=== PATIENT | female | born 1950 | race Caucasian/White ===

== ENCOUNTER 2019-01-22 08:58 | Outpatient (CLI) | payer BC, MEDICARE ==
[2019-01-22 09:28] LABS: Bilirubin Negative (Negative); Blood, Urine Negative (Negative); Clarity Clear (Clear); Glucose, Urine (Dipstick) Negative (Negative); Leukocyte Negative (Negative); Nitrite Negative (Negative); Protein, Urine (Dipstick) Negative (Neg-Trace); Urobilinogen 0.2 mg/dL (0.2-1.0)
[2019-01-22 09:29] LABS: #Basophils 0.1 thou/uL (0.0-0.2); #Eosinphils 0.3 thou/uL (0.0-0.7); #Lymphocytes 2.9 thou/uL (1.20-3.40); #Monocytes 0.5 thou/uL (0.11-0.59); #Neutrophils 4.2 thou/uL (1.40-6.50); %Basophils 0.9 % (0.0-1.0); %Eosinophils 3.3 % (0.0-10.0); %Lymphocytes 36.8 % (21.0-51.0); %Monocytes 6.1 % (0.0-10.0); %Neutrophils 52.9 % (42.0-75.0); Hemoglobin 13.8 g/dL (12.0-16.0); Mean Corpuscular Hemoglobin 31.4 pg (27.0-31.0); Mean Corpuscular Volume 98.2 fL (78.0-98.0); Platelet Count 308 thou/uL (130-400); RBC Distribution Width 11.7 % (11.5-14.5); Red Blood Cell (RBC) Count 4.39 mill/uL (4.20-5.40); White Blood Cell (WBC) Count 7.9 thou/uL (4.8-10.8)
[2019-01-22 09:35] LABS: RBC/HPF 0-3 HPF (0-3)
[2019-01-22 09:44] LABS: ALT (SGPT) 7 U/L (8-55); AST (SGOT) 10 U/L (5-34); Albumin 3.6 g/dL (3.4-4.8); Alkaline Phosphatase 84 U/L (40-150); Anion Gap 11 mmol/L (10-20); BUN (Urea Nitrogen) 9 mg/dL (9.8-20.1); Bilirubin, Total 0.4 mg/dL (0.2-1.2); Calc. Creatinine Clearance 0 mL/min (70-130); Calcium 8.6 mg/dL (7.8-10.44); Carbon Dioxide 26 mmol/L (23-31); Cardiac Risk 3.4 (Less than 4.5); Chloride 107 mmol/L (98-107); Cholesterol 202 mg/dl (< 200 Desired); Estimated GFR-MDRD 83; Glucose 93 mg/dL (80-115); HDL Cholesterol 60 mg/dL (>60 Neg Risk); LDL Cholesterol, Calculated 117 mg/dL; Protein, Total 6.6 g/dL (6.0-8.3); Sodium 140 mmol/L (136-145); Triglycerides 125 mg/dL (Less than 150)
== END 2019-01-22 08:59 | disposition home or self-care (01) ==
LOC: MADLABBHPM 08:58
PROVIDERS: ATTEND Family Medicine
DX: E66.01 Morbid (severe) obesity due to excess calories (principal); E78.5 Hyperlipidemia, unspecified; R82.90 Unspecified abnormal findings in urine; Z72.0 Tobacco use
CPT/HCPCS: 36415; 80053; 80061; 81001; 84443; 85025; 87086

== ENCOUNTER 2021-03-30 16:17 | Outpatient (CLI) | payer BC, MEDICARE | END 2021-03-30 16:18 | disposition home or self-care (01) | LOC: MADRAD 16:17 | PROVIDERS: ATTEND Family Medicine | DX: J44.9 Chronic obstructive pulmonary disease, unspecified (principal); I70.0 Atherosclerosis of aorta | CPT/HCPCS: 71046 ==

== ENCOUNTER 2021-09-11 13:13 | Emergency (ER) | payer BC, MEDICARE ==
[2021-09-11] MEDS ORDERED: predniSONE 20 MG TAB ONE (16:02)
[2021-09-11] MEDS ORDERED: predniSONE 10 MG TAB ONE (16:02)
[2021-09-11] MEDS ORDERED: Ipratropium Bromide 2.5 ml Neb ONE (16:03)
[2021-09-11] MEDS ORDERED: Albuterol Sulfate 2.5 mg/3 ml Neb ONE (16:03)
== END 2021-09-11 17:37 | disposition left against medical advice (07) ==
LOC: MADERS 13:13
DX: U07.1 COVID-19 (principal); J44.1 Chronic obstructive pulmonary disease with (acute) exacerbation; Z79.899 Other long term (current) drug therapy
CPT/HCPCS: 71045; 94760; J7512; J7611

== ENCOUNTER 2021-09-22 09:04 | Outpatient (CLI) | payer BC, MEDICARE ==
[2021-09-22] MEDS ORDERED: Iopamidol 370 76% 125 ML VIAL FS ONE (09:05)
[2021-09-22 09:58] LABS: Anion Gap 14 mmol/L (10-20); BUN (Urea Nitrogen) 10 mg/dL (9.8-20.1); Calc. Creatinine Clearance 0 mL/min (70-130); Calcium 8.6 mg/dL (7.8-10.44); Carbon Dioxide 27 mmol/L (23-31); Chloride 107 mmol/L (98-107); Glucose 86 mg/dL (80-115); Potassium 3.8 mmol/L (3.5-5.1); Sodium 144 mmol/L (136-145)
[2021-09-22 10:06] LABS: #Basophils 0.1 thou/uL (0.0-0.2); #Eosinphils 0.3 thou/uL (0.0-0.7); #Lymphocytes 2.6 thou/uL (1.20-3.40); #Monocytes 0.7 thou/uL (0.11-0.59); #Neutrophils 4.6 thou/uL (1.40-6.50); %Basophils 0.9 % (0.0-1.0); %Eosinophils 3.1 % (0.0-10.0); %Lymphocytes 31.7 % (21.0-51.0); %Monocytes 8.8 % (0.0-10.0); %Neutrophils 55.6 % (42.0-75.0); Hemoglobin 13.3 g/dL (12.0-16.0); Mean Corpuscular HGB CONC 31.4 g/dL (32.0-36.0); Mean Corpuscular Volume 98.8 fL (78.0-98.0); Mean Platelet Volume 7.4 fL (7.4-10.4); Platelet Count 341 thou/uL (130-400); RBC Distribution Width 12.1 % (11.5-14.5); Red Blood Cell (RBC) Count 4.28 mill/uL (4.20-5.40); White Blood Cell (WBC) Count 8.2 thou/uL (4.8-10.8)
== END 2021-09-22 09:05 | disposition home or self-care (01) ==
LOC: MADLAB 09:04
PROVIDERS: ATTEND Family Medicine
DX: J96.91 Respiratory failure, unspecified with hypoxia (principal); R91.8 Other nonspecific abnormal finding of lung field; I26.99 Other pulmonary embolism without acute cor pulmonale; J18.1 Lobar pneumonia, unspecified organism
CPT/HCPCS: 36415; 71275; 80048; 85025; Q9967

== ENCOUNTER 2021-10-28 14:43 | Outpatient (CLI) | payer BC, MEDICARE ==
[2021-10-28 15:04] LABS: #Basophils 0.1 thou/uL (0.0-0.2); #Eosinphils 0.2 thou/uL (0.0-0.7); #Lymphocytes 3.1 thou/uL (1.20-3.40); #Monocytes 0.6 thou/uL (0.11-0.59); #Neutrophils 4.6 thou/uL (1.40-6.50); %Basophils 1.2 % (0.0-1.0); %Eosinophils 2.9 % (0.0-10.0); %Lymphocytes 35.5 % (21.0-51.0); %Monocytes 6.9 % (0.0-10.0); %Neutrophils 53.5 % (42.0-75.0); Hemoglobin 14.2 g/dL (12.0-16.0); Mean Corpuscular HGB CONC 32.4 g/dL (32.0-36.0); Mean Corpuscular Hemoglobin 31.6 pg (27.0-31.0); Mean Corpuscular Volume 97.7 fL (78.0-98.0); Mean Platelet Volume 6.9 fL (7.4-10.4); Platelet Count 348 thou/uL (130-400); RBC Distribution Width 12.4 % (11.5-14.5); Red Blood Cell (RBC) Count 4.48 mill/uL (4.20-5.40); White Blood Cell (WBC) Count 8.6 thou/uL (4.8-10.8)
[2021-10-28 15:19] LABS: ALT (SGPT) 17 U/L (8-55); AST (SGOT) 18 U/L (5-34); Albumin 4.1 g/dL (3.4-4.8); Alkaline Phosphatase 74 U/L (40-110); Anion Gap 15 mmol/L (10-20); BUN (Urea Nitrogen) 11 mg/dL (9.8-20.1); Bilirubin, Total 0.5 mg/dL (0.2-1.2); Calc. Creatinine Clearance 0 mL/min (70-130); Calcium 9.8 mg/dL (7.8-10.44); Carbon Dioxide 27 mmol/L (23-31); Cardiac Risk 3.9 (Less than 4.5); Chloride 103 mmol/L (98-107); Cholesterol 199 mg/dl (< 200 Desired); Glucose 95 mg/dL (80-115); HDL Cholesterol 51 mg/dL (>60 Neg Risk); LDL Cholesterol, Calculated 125 mg/dL; Potassium 4.2 mmol/L (3.5-5.1); Protein, Total 7.1 g/dL (5.8-8.1); Sodium 141 mmol/L (136-145); Triglycerides 117 mg/dL (Less than 150)
== END 2021-10-28 14:44 | disposition home or self-care (01) ==
LOC: MADLAB 14:43
PROVIDERS: ATTEND Family Medicine
DX: U07.1 COVID-19 (principal); J44.9 Chronic obstructive pulmonary disease, unspecified
CPT/HCPCS: 36415; 71046; 80053; 80061; 85025

== ENCOUNTER 2023-06-12 21:56 | Inpatient (IN) | payer MEDICARE ==
[2023-06-13] MEDS ORDERED: Lidocaine-Prilocaine 2.5% Cream 5 GM TUBE TOP PRN (07:31)
[2023-06-13] MEDS ORDERED: Benzonatate 100 MG CAP PO PRN (07:31)
[2023-06-13] MEDS ORDERED: Lorazepam 2 MG/ML VIAL SLOW IVP PRN (07:31)
[2023-06-13] MEDS ORDERED: Non-Formulary Item 1 EACH (Docusate Sodium [Stool Softener] 50 MG Capsule) PO PRN (07:31)
[2023-06-13] MEDS ORDERED: Non-Formulary Item 1 EACH (Prochlorperazine Maleate [Compazine] 10 MG Tab) PO PRN (07:31)
[2023-06-13] MEDS ORDERED: Docusate Sodium 100 MG/10 ML UDCUP PO PRN (08:05)
[2023-06-13] MEDS ORDERED: Prochlorperazine Maleate 5 MG TAB PO PRN (08:06)
[2023-06-13] MEDS: Ipratropium/Albuterol 3 ML NEB NEB PRN ×2 (08:18→18:09)
[2023-06-13] MEDS ORDERED: Non-Formulary Item 1 EACH (Omeprazole Magnesium [Prilosec Otc] 20 MG Tab) PO SCH (09:00)
[2023-06-13] MEDS ORDERED: Cholecalciferol (Vitamin D3) 5,000 UNITS CAPSULE PO SCH (09:00)
[2023-06-13] MEDS ORDERED: Non-Formulary Item 1 EACH (Tiotropium [Spiriva Handihaler] 18 MCG Box) INH SCH (09:00)
[2023-06-13] MEDS: Gabapentin 300 MG CAP PO SCH (09:32)
[2023-06-13] MEDS: Cholecalciferol (Vitamin D3) 5,000 UNITS CAPSULE PO SCH (09:33)
[2023-06-13] MEDS: Apixaban 5 MG TAB PO SCH ×2 (09:33→21:48)
[2023-06-13] MEDS: Ferrous Sulfate 325 MG TAB PO SCH (09:33)
[2023-06-13] MEDS: Folic Acid 1 MG TAB PO SCH (09:33)
[2023-06-13] MEDS: traMADol HCl 50 MG TAB PO SCH (09:33)
[2023-06-13] MEDS ORDERED: Meropenem 1 GM in Sodium Chloride 0.9% 100 ML IVPB SCH (10:00)
[2023-06-13] MEDS: Ipratropium/Albuterol 3 ML NEB NEB SCH ×3 (11:28→21:48)
[2023-06-13] MEDS: Meropenem 1 GM in Sodium Chloride 0.9% 100 ML IVPB SCH ×3 (11:29→21:47)
[2023-06-13] MEDS ORDERED: Meropenem 1 GM VIAL IVPB SCH (12:00)
[2023-06-13] MEDS: Ondansetron ODT 4 MG TAB PO SCH ×2 (13:44→21:51)
[2023-06-13] MEDS ORDERED: ONDANSETRON 8 MG PO SCH (14:00)
[2023-06-13] MEDS: Benzonatate 100 MG CAP PO PRN (21:49)
[2023-06-13] MEDS: Cyanocobalamin (Vitamin B-12) 1,000 MCG TAB PO SCH (21:51)
[2023-06-14] MEDS: Ipratropium/Albuterol 3 ML NEB NEB SCH ×7 (00:12→20:51)
[2023-06-14] MEDS: Meropenem 1 GM in Sodium Chloride 0.9% 100 ML IVPB SCH ×7 (04:00→22:11)
[2023-06-14 05:16] LABS: Anisocytosis MODERATE=16-30 cells (100X) (0-5/hpf); Band 2 % (5-11); Hemoglobin 8.4 g/dL (12.0-16.0); Lymphocytes 8 % (21-51); MDiff Complete? YES; Mean Corpuscular HGB CONC 31.2 g/dL (32.0-36.0); Mean Corpuscular Volume 86.6 fl (78.0-98.0); Mean Platelet Volume 7.5 fL (7.4-10.4); Monocytes 3 % (0-10); Neutrophil 87 % (42-75); Platelet Adequacy Comment Appears Adequate; Platelet Count 311 10x3/uL (130-400); Red Blood Cell (RBC) Count 3.12 mill/uL (4.20-5.40); White Blood Cell (WBC) Count 11.1 10x3/uL (4.8-10.8)
[2023-06-14 05:22] LABS: ALT (SGPT) 12 U/L (8-55); AST (SGOT) 16 U/L (5-34); Albumin 2.6 g/dL (3.4-4.8); Alkaline Phosphatase 105 U/L (40-110); Anion Gap 15 mmol/L (10-20); BUN (Urea Nitrogen) 9 mg/dL (9.8-20.1); Bilirubin, Total 0.3 mg/dL (0.2-1.2); Calc. Creatinine Clearance 133 mL/min (70-130); Calcium 8.8 mg/dL (7.8-10.44); Carbon Dioxide 29 mmol/L (23-31); Chloride 97 mmol/L (98-107); Estimated GFR 94; Globulin 3.5 g/dL (2.4-3.5); Glucose 126 mg/dL (83-110); Potassium 4.2 mmol/L (3.5-5.1); Protein, Total 6.1 g/dL (5.8-8.1); Sodium 137 mmol/L (136-145)
[2023-06-14] MEDS: Ondansetron ODT 4 MG TAB PO SCH ×3 (05:25→21:01)
[2023-06-14] MEDS: traMADol HCl 50 MG TAB PO SCH (07:59)
[2023-06-14] MEDS: Gabapentin 300 MG CAP PO SCH (08:00)
[2023-06-14] MEDS: Ferrous Sulfate 325 MG TAB PO SCH (08:00)
[2023-06-14] MEDS: Apixaban 5 MG TAB PO SCH ×2 (08:00→20:52)
[2023-06-14] MEDS: Cholecalciferol (Vitamin D3) 5,000 UNITS CAPSULE PO SCH (08:01)
[2023-06-14] MEDS: Folic Acid 1 MG TAB PO SCH (08:01)
[2023-06-14] MEDS: Cyanocobalamin (Vitamin B-12) 1,000 MCG TAB PO SCH (20:51)
[2023-06-14] MEDS: Ipratropium/Albuterol 3 ML NEB NEB PRN (23:30)
[2023-06-15] MEDS: Ipratropium/Albuterol 3 ML NEB NEB SCH ×6 (02:03→20:14)
[2023-06-15] MEDS: Meropenem 1 GM in Sodium Chloride 0.9% 100 ML IVPB SCH ×6 (04:01→21:41)
[2023-06-15] MEDS: Ondansetron ODT 4 MG TAB PO SCH ×3 (05:29→21:41)
[2023-06-15] MEDS: Albuterol 200 PUFF (6.7GM INHALER) INH PRN ×2 (06:13→14:59)
[2023-06-15] MEDS: Ferrous Sulfate 325 MG TAB PO SCH (08:59)
[2023-06-15] MEDS: Apixaban 5 MG TAB PO SCH ×2 (09:00→20:15)
[2023-06-15] MEDS: traMADol HCl 50 MG TAB PO SCH (09:00)
[2023-06-15] MEDS: Gabapentin 300 MG CAP PO SCH (09:00)
[2023-06-15] MEDS: Cholecalciferol (Vitamin D3) 5,000 UNITS CAPSULE PO SCH (09:01)
[2023-06-15] MEDS: Folic Acid 1 MG TAB PO SCH (09:01)
[2023-06-15] MEDS: Benzonatate 100 MG CAP PO PRN (09:05)
[2023-06-15] MEDS: Cyanocobalamin (Vitamin B-12) 1,000 MCG TAB PO SCH (20:15)
[2023-06-16] MEDS: Ipratropium/Albuterol 3 ML NEB NEB SCH ×6 (00:41→20:32)
[2023-06-16] MEDS: Meropenem 1 GM in Sodium Chloride 0.9% 100 ML IVPB SCH ×6 (04:46→21:53)
[2023-06-16] MEDS: Ondansetron ODT 4 MG TAB PO SCH ×3 (05:43→21:53)
[2023-06-16] MEDS: Ferrous Sulfate 325 MG TAB PO SCH (08:41)
[2023-06-16] MEDS: Apixaban 5 MG TAB PO SCH ×2 (08:41→20:32)
[2023-06-16] MEDS: Cholecalciferol (Vitamin D3) 5,000 UNITS CAPSULE PO SCH (08:41)
[2023-06-16] MEDS: traMADol HCl 50 MG TAB PO SCH (08:41)
[2023-06-16] MEDS: Gabapentin 300 MG CAP PO SCH (08:43)
[2023-06-16] MEDS: Folic Acid 1 MG TAB PO SCH (08:43)
[2023-06-16] MEDS ORDERED: FLU VACC QS2023(65UP)/MF59C/PF 60 MCG/0.5 ML SYRINGE IM ONE (09:00)
[2023-06-16] MEDS ORDERED: TIOTROPIUM 18 MCG INH SCH (13:15)
[2023-06-16] MEDS: Cyanocobalamin (Vitamin B-12) 1,000 MCG TAB PO SCH (20:32)
[2023-06-17] MEDS: Ipratropium/Albuterol 3 ML NEB NEB SCH ×6 (01:38→20:14)
[2023-06-17] MEDS: Meropenem 1 GM in Sodium Chloride 0.9% 100 ML IVPB SCH ×6 (04:00→21:30)
[2023-06-17] MEDS: Ondansetron ODT 4 MG TAB PO SCH ×3 (05:34→21:30)
[2023-06-17] MEDS: Ipratropium/Albuterol 3 ML NEB NEB PRN (06:38)
[2023-06-17] MEDS: Gabapentin 300 MG CAP PO SCH (08:07)
[2023-06-17] MEDS: Cholecalciferol (Vitamin D3) 5,000 UNITS CAPSULE PO SCH (08:07)
[2023-06-17] MEDS: traMADol HCl 50 MG TAB PO SCH (08:07)
[2023-06-17] MEDS: Apixaban 5 MG TAB PO SCH ×2 (08:08→20:14)
[2023-06-17] MEDS: Folic Acid 1 MG TAB PO SCH (08:08)
[2023-06-17] MEDS: Ferrous Sulfate 325 MG TAB PO SCH (08:08)
[2023-06-17] MEDS: TIOTROPIUM 18 MCG INH SCH (11:43)
[2023-06-17] MEDS: Benzonatate 100 MG CAP PO PRN (16:16)
[2023-06-17] MEDS: Cyanocobalamin (Vitamin B-12) 1,000 MCG TAB PO SCH (20:13)
[2023-06-18] MEDS: Ipratropium/Albuterol 3 ML NEB NEB SCH ×4 (01:12→12:27)
[2023-06-18] MEDS: Meropenem 1 GM in Sodium Chloride 0.9% 100 ML IVPB SCH ×6 (03:53→20:58)
[2023-06-18] MEDS: Albuterol 200 PUFF (6.7GM INHALER) INH PRN (04:53)
[2023-06-18] MEDS: Ondansetron ODT 4 MG TAB PO SCH ×3 (05:26→22:26)
[2023-06-18 05:46] LABS: ALT (SGPT) 12 U/L (8-55); AST (SGOT) 15 U/L (5-34); Albumin 2.6 g/dL (3.4-4.8); Alkaline Phosphatase 108 U/L (40-110); Anion Gap 15 mmol/L (10-20); BUN (Urea Nitrogen) 10 mg/dL (9.8-20.1); Bilirubin, Total 0.2 mg/dL (0.2-1.2); Calc. Creatinine Clearance 126 mL/min (70-130); Calcium 8.6 mg/dL (7.8-10.44); Carbon Dioxide 30 mmol/L (23-31); Chloride 97 mmol/L (98-107); Estimated GFR 92; Globulin 3.5 g/dL (2.4-3.5); Glucose 131 mg/dL (83-110); Potassium 3.7 mmol/L (3.5-5.1); Protein, Total 6.1 g/dL (5.8-8.1); Sodium 138 mmol/L (136-145)
[2023-06-18 05:47] LABS: Anisocytosis SLIGHT = 6-15 cells (100X) (0-5/hpf); Band 2 % (5-11); Eosinophils 1 % (0-10); Hematocrit 26.7 % (36.0-47.0); Hemoglobin 8.3 g/dL (12.0-16.0); Lymphocytes 14 % (21-51); MDiff Complete? YES; Mean Corpuscular HGB CONC 31.1 g/dL (32.0-36.0); Mean Corpuscular Hemoglobin 27.4 pg (27.0-31.0); Mean Platelet Volume 6.7 fL (7.4-10.4); Monocytes 8 % (0-10); Neutrophil 75 % (42-75); Ovalocytes SLIGHT = 2-5 cells (100X) (0-1/hpf); Platelet Adequacy Comment Appears Adequate; Platelet Count 294 10x3/uL (130-400); Polychromasia SLIGHT = 2-3 cells (100X) (0-2/hpf); RBC Distribution Width 21.4 % (11.5-14.5); Red Blood Cell (RBC) Count 3.03 mill/uL (4.20-5.40); White Blood Cell (WBC) Count 10.6 10x3/uL (4.8-10.8)
[2023-06-18] MEDS: Folic Acid 1 MG TAB PO SCH (08:10)
[2023-06-18] MEDS: Apixaban 5 MG TAB PO SCH ×2 (08:10→20:52)
[2023-06-18] MEDS: traMADol HCl 50 MG TAB PO SCH (08:10)
[2023-06-18] MEDS: Cholecalciferol (Vitamin D3) 5,000 UNITS CAPSULE PO SCH (08:10)
[2023-06-18] MEDS: Ferrous Sulfate 325 MG TAB PO SCH (08:11)
[2023-06-18] MEDS: Gabapentin 300 MG CAP PO SCH (08:14)
[2023-06-18] MEDS ORDERED: Furosemide 40 MG/4 ML VIAL SLOW IVP SCH (11:00)
[2023-06-18] MEDS: TIOTROPIUM 18 MCG INH SCH ×2 (12:28→15:24)
[2023-06-18] MEDS: Benzonatate 100 MG CAP PO PRN (14:50)
[2023-06-18] MEDS: Ipratropium/Albuterol 3 ML NEB NEB PRN (20:51)
[2023-06-18] MEDS: Cyanocobalamin (Vitamin B-12) 1,000 MCG TAB PO SCH (20:52)
[2023-06-19] MEDS: Meropenem 1 GM in Sodium Chloride 0.9% 100 ML IVPB SCH ×6 (04:46→20:55)
[2023-06-19] MEDS: Ondansetron ODT 4 MG TAB PO SCH ×3 (04:55→21:31)
[2023-06-19] MEDS: Ipratropium/Albuterol 3 ML NEB NEB PRN ×3 (05:55→20:45)
[2023-06-19] MEDS: Gabapentin 300 MG CAP PO SCH (08:48)
[2023-06-19] MEDS: traMADol HCl 50 MG TAB PO SCH (08:49)
[2023-06-19] MEDS: Folic Acid 1 MG TAB PO SCH (08:49)
[2023-06-19] MEDS: Apixaban 5 MG TAB PO SCH ×2 (08:49→20:58)
[2023-06-19] MEDS: Cholecalciferol (Vitamin D3) 5,000 UNITS CAPSULE PO SCH (08:49)
[2023-06-19] MEDS: Ferrous Sulfate 325 MG TAB PO SCH (08:49)
[2023-06-19] MEDS: TIOTROPIUM 18 MCG INH SCH (12:45)
[2023-06-19] MEDS: Cyanocobalamin (Vitamin B-12) 1,000 MCG TAB PO SCH (20:58)
[2023-06-19] MEDS: Albuterol 200 PUFF (6.7GM INHALER) INH PRN (22:00)
[2023-06-20] MEDS: Meropenem 1 GM in Sodium Chloride 0.9% 100 ML IVPB SCH ×6 (04:05→21:20)
[2023-06-20] MEDS: Ondansetron ODT 4 MG TAB PO SCH ×3 (05:17→21:19)
[2023-06-20] MEDS ORDERED: Furosemide 40 MG/4 ML VIAL SLOW IVP SCH (08:00)
[2023-06-20] MEDS: Apixaban 5 MG TAB PO SCH ×2 (08:16→21:20)
[2023-06-20] MEDS: Ferrous Sulfate 325 MG TAB PO SCH (08:16)
[2023-06-20] MEDS: Gabapentin 300 MG CAP PO SCH (08:17)
[2023-06-20] MEDS: Folic Acid 1 MG TAB PO SCH (08:17)
[2023-06-20] MEDS: Cholecalciferol (Vitamin D3) 5,000 UNITS CAPSULE PO SCH (08:17)
[2023-06-20] MEDS: Benzonatate 100 MG CAP PO PRN (08:21)
[2023-06-20] MEDS: traMADol HCl 50 MG TAB PO SCH (08:21)
[2023-06-20] MEDS: TIOTROPIUM 18 MCG INH SCH (11:55)
[2023-06-20] MEDS: Cyanocobalamin (Vitamin B-12) 1,000 MCG TAB PO SCH (21:19)
[2023-06-21] MEDS: Meropenem 1 GM in Sodium Chloride 0.9% 100 ML IVPB SCH ×6 (04:19→20:27)
[2023-06-21] MEDS: Ondansetron ODT 4 MG TAB PO SCH ×3 (05:49→22:08)
[2023-06-21] MEDS: traMADol HCl 50 MG TAB PO SCH (08:16)
[2023-06-21] MEDS: Gabapentin 300 MG CAP PO SCH (08:18)
[2023-06-21] MEDS: Benzonatate 100 MG CAP PO PRN (08:18)
[2023-06-21] MEDS: Apixaban 5 MG TAB PO SCH ×2 (08:18→20:27)
[2023-06-21] MEDS: Ferrous Sulfate 325 MG TAB PO SCH (08:18)
[2023-06-21] MEDS: Folic Acid 1 MG TAB PO SCH (08:18)
[2023-06-21] MEDS: Cholecalciferol (Vitamin D3) 5,000 UNITS CAPSULE PO SCH (08:19)
[2023-06-21] MEDS: TIOTROPIUM 18 MCG INH SCH (12:31)
[2023-06-21] MEDS: Cyanocobalamin (Vitamin B-12) 1,000 MCG TAB PO SCH (20:28)
[2023-06-21] MEDS: Ipratropium/Albuterol 3 ML NEB NEB PRN (23:46)
[2023-06-22] MEDS: Meropenem 1 GM in Sodium Chloride 0.9% 100 ML IVPB SCH ×6 (04:28→21:32)
[2023-06-22] MEDS: Ondansetron ODT 4 MG TAB PO SCH ×3 (05:47→21:32)
[2023-06-22] MEDS: traMADol HCl 50 MG TAB PO SCH (08:07)
[2023-06-22] MEDS: Folic Acid 1 MG TAB PO SCH (08:07)
[2023-06-22] MEDS: Apixaban 5 MG TAB PO SCH ×2 (08:08→20:03)
[2023-06-22] MEDS: Gabapentin 300 MG CAP PO SCH (08:08)
[2023-06-22] MEDS: Benzonatate 100 MG CAP PO PRN ×2 (08:08→21:34)
[2023-06-22] MEDS: Cholecalciferol (Vitamin D3) 5,000 UNITS CAPSULE PO SCH (08:08)
[2023-06-22] MEDS: Ferrous Sulfate 325 MG TAB PO SCH (08:08)
[2023-06-22 10:38] VITALS: BMI 39.3
[2023-06-22] MEDS: TIOTROPIUM 18 MCG INH SCH (11:39)
[2023-06-22] MEDS: Cyanocobalamin (Vitamin B-12) 1,000 MCG TAB PO SCH (20:03)
[2023-06-22] MEDS: Ipratropium/Albuterol 3 ML NEB NEB PRN (21:35)
[2023-06-23] MEDS: Meropenem 1 GM in Sodium Chloride 0.9% 100 ML IVPB SCH ×6 (03:57→21:38)
[2023-06-23] MEDS: Ondansetron ODT 4 MG TAB PO SCH ×3 (05:27→21:38)
[2023-06-23] MEDS: Ipratropium/Albuterol 3 ML NEB NEB PRN (05:39)
[2023-06-23] MEDS: Cholecalciferol (Vitamin D3) 5,000 UNITS CAPSULE PO SCH (09:22)
[2023-06-23] MEDS: traMADol HCl 50 MG TAB PO SCH (09:22)
[2023-06-23] MEDS: Apixaban 5 MG TAB PO SCH ×2 (09:23→20:07)
[2023-06-23] MEDS: Folic Acid 1 MG TAB PO SCH (09:23)
[2023-06-23] MEDS: Gabapentin 300 MG CAP PO SCH (09:23)
[2023-06-23] MEDS: Ferrous Sulfate 325 MG TAB PO SCH (09:23)
[2023-06-23] MEDS: TIOTROPIUM 18 MCG INH SCH (12:12)
[2023-06-23] MEDS: Cyanocobalamin (Vitamin B-12) 1,000 MCG TAB PO SCH (20:07)
[2023-06-24] MEDS: Meropenem 1 GM in Sodium Chloride 0.9% 100 ML IVPB SCH ×6 (03:53→21:04)
[2023-06-24] MEDS: Ondansetron ODT 4 MG TAB PO SCH ×3 (05:38→21:03)
[2023-06-24] MEDS: traMADol HCl 50 MG TAB PO SCH (08:56)
[2023-06-24] MEDS: Folic Acid 1 MG TAB PO SCH (08:57)
[2023-06-24] MEDS: Cholecalciferol (Vitamin D3) 5,000 UNITS CAPSULE PO SCH (08:57)
[2023-06-24] MEDS: Apixaban 5 MG TAB PO SCH ×2 (08:57→21:03)
[2023-06-24] MEDS: Ferrous Sulfate 325 MG TAB PO SCH (08:57)
[2023-06-24] MEDS: Gabapentin 300 MG CAP PO SCH (08:57)
[2023-06-24] MEDS: Ipratropium/Albuterol 3 ML NEB NEB PRN (09:02)
[2023-06-24] MEDS: TIOTROPIUM 18 MCG INH SCH (12:30)
[2023-06-24] MEDS: Cyanocobalamin (Vitamin B-12) 1,000 MCG TAB PO SCH (21:03)
[2023-06-25 05:23] LABS: Hematocrit 28.6 % (36.0-47.0); Hemoglobin 8.6 g/dL (12.0-16.0); Platelet Count 335 10x3/uL (130-400)
[2023-06-25 07:20] VITALS: BP 107/70; TEMP 100
[2023-06-25] MEDS: Albuterol 200 PUFF (6.7GM INHALER) INH PRN (08:00)
[2023-06-25] MEDS: traMADol HCl 50 MG TAB PO SCH (08:04)
[2023-06-25] MEDS: Apixaban 5 MG TAB PO SCH (08:05)
[2023-06-25] MEDS: Folic Acid 1 MG TAB PO SCH (08:05)
[2023-06-25] MEDS: Gabapentin 300 MG CAP PO SCH (08:05)
[2023-06-25] MEDS: Cholecalciferol (Vitamin D3) 5,000 UNITS CAPSULE PO SCH (08:05)
[2023-06-25] MEDS: Ferrous Sulfate 325 MG TAB PO SCH (08:05)
[2023-06-25] MEDS: Ondansetron ODT 4 MG TAB PO SCH (08:06)
== END 2023-06-25 11:45 | disposition home or self-care (01) | DRG 178 ==
LOC: UNDOADMIN 21:56 → MADMS 21:56
PROVIDERS: ADMIT Family Medicine; ATTEND Emergency Medicine
PROC: 5A09457 Assistance with Respiratory Ventilation, 24-96 Consecutive Hours, Continuous Positive Airway Pressure (ICD-10-PCS; principal; 2023-06-13)
PROC: 5A0935A Assistance with Respiratory Ventilation, Less than 24 Consecutive Hours, High Flow/Velocity Cannula (ICD-10-PCS; 2023-06-18)
DX: J15.1 Pneumonia due to Pseudomonas (principal); C34.92 Malignant neoplasm of unspecified part of left bronchus or lung; J96.11 Chronic respiratory failure with hypoxia; J44.1 Chronic obstructive pulmonary disease with (acute) exacerbation; J44.0 Chronic obstructive pulmonary disease with (acute) lower respiratory infection; Z16.24 Resistance to multiple antibiotics; R53.81 Other malaise; D50.9 Iron deficiency anemia, unspecified; G47.33 Obstructive sleep apnea (adult) (pediatric); Z98.890 Other specified postprocedural states; Z86.16 Personal history of COVID-19; Z79.01 Long term (current) use of anticoagulants; Z99.81 Dependence on supplemental oxygen; Z86.711 Personal history of pulmonary embolism; Z87.891 Personal history of nicotine dependence; Z80.0 Family history of malignant neoplasm of digestive organs; Z79.899 Other long term (current) drug therapy
CPT/HCPCS: 36415; 80053; 83880; 85014; 85018; 85025; 85049; 94640; J1940; J2185; J3490; J7611; J7620; Q0162

== ENCOUNTER 2023-07-25 18:55 | Outpatient (CLI) | payer MEDICARE | END 2023-07-25 18:56 | disposition home or self-care (01) | LOC: MADCT 18:55 | PROVIDERS: ATTEND Radiology Radiation Oncology | DX: C34.32 Malignant neoplasm of lower lobe, left bronchus or lung (principal); R91.1 Solitary pulmonary nodule; J18.9 Pneumonia, unspecified organism | CPT/HCPCS: 71260 ==

== ENCOUNTER 2023-08-25 12:03 | Emergency (ER) | payer MEDICARE ==
[2023-08-25 12:48] LABS: INR-International Normal Ratio 1.4; Prothrombin Time 17.3 sec (12.0-14.7)
[2023-08-25 12:49] LABS: PTT 34.6 sec (22.9-36.1)
[2023-08-25 12:56] LABS: Anisocytosis SLIGHT = 6-15 cells (100X) (0-5/hpf); Band 2 % (5-11); Eosinophils 4 % (0-10); Hematocrit 21.6 % (36.0-47.0); Hemoglobin 6.2 g/dL (12.0-16.0); Hypochromia MODERATE=16-30 cells (100X) (0-5/hpf); Lymphocytes 1 % (21-51); MDiff Complete? YES; Manual Diff?? YES; Mean Corpuscular HGB CONC 28.7 g/dL (32.0-36.0); Mean Corpuscular Hemoglobin 26.4 pg (27.0-31.0); Mean Platelet Volume 7.2 fL (7.4-10.4); Monocytes 3 % (0-10); Neutrophil 87 % (42-75); Platelet Count 478 10x3/uL (130-400); Polychromasia MODERATE = 3-4 cells (100X) (0-2/hpf); RBC Distribution Width 19.9 % (11.5-14.5); Reactive Lymphocytes 3 % (0-10); Red Blood Cell (RBC) Count 2.35 mill/uL (4.20-5.40); Reflex for Review?? YES; White Blood Cell (WBC) Count 34.3 10x3/uL (4.8-10.8)
[2023-08-25] MEDS ORDERED: Piperacillin/Tazobactam 4.5 GM VIAL ONE (12:56)
[2023-08-25] MEDS ORDERED: Azithromycin 500 MG VIAL ONE (12:56)
[2023-08-25 12:57] LABS: Anion Gap 17 mmol/L (10-20); BUN (Urea Nitrogen) 10 mg/dL (9.8-20.1); Calc. Creatinine Clearance 0 mL/min (70-130); Calcium 8.9 mg/dL (7.8-10.44); Carbon Dioxide 33 mmol/L (23-31); Chloride 93 mmol/L (98-107); Estimated GFR 94; Glucose 125 mg/dL (83-110); Lipase 6 U/L (8-78); Platelet Adequacy Comment Appears Increased; Potassium 3.9 mmol/L (3.5-5.1); Sodium 139 mmol/L (136-145); Troponin I Less than 0.010 ng/mL (< 0.028)
[2023-08-25] MEDS ORDERED: Sodium Chloride 0.9% 100 ML ONE (12:57)
[2023-08-25 12:58] LABS: Bicarbonate (HCO3v) 38.3 mmol/L (22.0-28.0); CO2 Tension (PvCO2) 54.2 mmHg (42.0-51.0); Calcium, Ionized 1.13 mmol/L (1.15-1.33); Chloride 95 mmol/L (98-107); Hemoglobin - Calc 7.5 g/dL (12.0-16.0); Potassium 3.8 mmol/L (3.5-5.1); Sodium 139 mmol/L (138-145); vO2 Saturation-calc 99.4 % (60.0-85.0)
[2023-08-25 13:09] LABS: SARS-CoV-2 NAA Rapid Test Not Detected (NotDetected)
[2023-08-25] MEDS ORDERED: Sodium Chloride 0.45% 1,000 ML ONE (13:50)
[2023-08-25] MEDS ORDERED: Sodium Chloride 0.9% 500 ML ONE (13:50)
[2023-08-25 14:50] LABS: Bilirubin Negative (Negative); Blood, Urine Negative (Negative); Glucose, Urine (Dipstick) Negative (Negative); Ketone, Urine Negative (Negative); Leukocyte Negative (Negative); Nitrite Negative (Negative); Protein, Urine (Dipstick) Negative (Neg-Trace); Urobilinogen 0.2 mg/dL (Less than 2)
[2023-08-25 14:51] LABS: Clarity Clear (Clear)
[2023-08-25 14:56] LABS: Bacteria/HPF Rare-Few HPF (None Seen); CAUTI Indications for Culture Dysuria,urgency,freq; RBC/HPF None Seen HPF (0-3); Urine Culture Reflex No No; WBC/HPF None Seen HPF (0-3)
== END 2023-08-25 15:38 | disposition short-term general hospital (02) ==
LOC: MADERS 12:03
DX: A41.9 Sepsis, unspecified organism (principal); J18.9 Pneumonia, unspecified organism; R09.02 Hypoxemia; D64.9 Anemia, unspecified; J44.9 Chronic obstructive pulmonary disease, unspecified; Z79.01 Long term (current) use of anticoagulants; Z79.899 Other long term (current) drug therapy
CPT/HCPCS: 36430; 71045; 80048; 81001; 82330; 82435; 82803; 83605; 83690; 83880; 84132; 84295; 84443; 84484; 85014; 85025; 85610; 85730; 86850; 86900; 86901; 86920; 87040; 87804 ×2; 93005; J0456; P9016; U0002; 82274; 85060; 96361; 96365; 96367; J2543; J3490; J7030

== ENCOUNTER 2025-04-20 15:31 | Outpatient (CLI) | payer MEDICARE | END 2025-04-20 15:32 | disposition home or self-care (01) | LOC: MADRAD 15:31 | PROVIDERS: ATTEND Nurse Practitioner Family | DX: J90 Pleural effusion, not elsewhere classified (principal) | CPT/HCPCS: 71046 ==

== ENCOUNTER 2025-04-21 20:34 | Emergency (ER) | payer MEDICARE ==
[2025-04-21 22:00] LABS: ALT (SGPT) Less than 4 U/L (Less than 34); AST (SGOT) 11 U/L (11-34); Albumin 2.4 g/dL (3.1-4.5); Alkaline Phosphatase 96 U/L (40-110); Anion Gap 16 mmol/L (10-20); BUN (Urea Nitrogen) 11 mg/dL (9.8-20.1); Bilirubin, Total Less than 0.1 mg/dL (0.3-1.2); Calc. Creatinine Clearance 0 mL/min (70-130); Calcium 8.9 mg/dL (7.8-10.44); Carbon Dioxide 29 mmol/L (23-31); Chloride 103 mmol/L (98-107); Globulin 5.2 g/dL (2.4-3.5); Glucose 115 mg/dL (83-110); Potassium 3.5 mmol/L (3.5-5.1); Sodium 144 mmol/L (136-145)
[2025-04-21] MEDS ORDERED: Cefepime 2 GM VIAL ONE (22:17)
[2025-04-21] MEDS ORDERED: Sodium Chloride 0.9% 250 ML 500 ML ONE (22:17)
[2025-04-21 22:19] LABS: #Basophils 0.1 thou/uL (0.0-0.2); #Eosinophils 0.3 thou/uL (0.0-0.7); #Lymphocytes 2.8 thou/uL (1.20-3.40); #Monocytes 0.9 thou/uL (0.11-0.59); #Neutrophils 7.5 thou/uL (1.40-6.50); %Basophils 0.5 % (0.0-1.0); %Eosinophils 2.5 % (0.0-10.0); %Lymphocytes 24.6 % (21.0-51.0); %Monocytes 8.0 % (0.0-10.0); %Neutrophils 64.5 % (42.0-75.0); Anisocytosis SLIGHT = 6-15 cells (100X) (0-5/hpf); Hematocrit 25.9 % (36.0-47.0); Hemoglobin 8.0 g/dL (12.0-16.0); MDiff Complete? YES; Mean Corpuscular Hemoglobin 27.3 pg (27.0-31.0); Mean Corpuscular Volume 88.4 fl (78.0-98.0); Platelet Adequacy Comment Appears Increased; Platelet Count 641 10x3/uL (130-400); Polychromasia SLIGHT = 2-3 cells (100X) (0-2/hpf); Red Blood Cell (RBC) Count 2.93 mill/uL (4.20-5.40); White Blood Cell (WBC) Count 11.6 10x3/uL (4.8-10.8)
[2025-04-21 22:52] LABS: Bicarbonate (HCO3v) 34.6 mmol/L (22.0-28.0); CO2 Tension (PvCO2) 47.7 mmHg (42.0-51.0); Calcium, Ionized 1.11 mmol/L (1.15-1.33); Chloride 102 mmol/L (98-107); Hemoglobin - Calc 8.6 g/dL (12.0-16.0); Potassium 3.4 mmol/L (3.5-5.1); Sodium 142 mmol/L (138-145); T. Carbon Dioxide 36.1 mmol/L (22.0-28.0); vO2 Saturation-calc 59.0 % (60.0-85.0)
== END 2025-04-22 01:04 | disposition short-term general hospital (02) ==
LOC: MADERS 20:34
DX: J18.9 Pneumonia, unspecified organism (principal); J90 Pleural effusion, not elsewhere classified; J44.9 Chronic obstructive pulmonary disease, unspecified; K21.9 Gastro-esophageal reflux disease without esophagitis; D64.9 Anemia, unspecified; Z79.51 Long term (current) use of inhaled steroids
CPT/HCPCS: 36415; 71250; 80053; 82330; 82803; 83605; 85025; 87040; 96365; 96375; J0692; J3373; J7030; J7050